=== PATIENT | male | born 1995 | race Hispanic/Latino ===

== ENCOUNTER 2016-05-21 12:47 | Emergency (ER) | payer SELFPAY ==
[2016-05-21 12:57] VITALS: BMI 26.4
[2016-05-21 13:01] VITALS: BP 150/86; PULSE 80; RESP 16; TEMP 98.2; O2SAT 100
[2016-05-21] MEDS ORDERED: Sodium Chloride 0.9% 1,000 ML IV STA (13:14)
[2016-05-21] MEDS ORDERED: Dextrose 5%/0.45% NS 1,000 ML IV STA (13:14)
[2016-05-21 13:37] LABS: HEMATOCRIT 50.3 % (42.0-52.0); MEAN CELL VOLUME 82.6 fL (80.0-105.0); MEAN CORPUSCULAR HEMOGLOBIN 29.2 pg (25.0-35.0); MEAN CORPUSCULAR HGB CONC 35.4 g/dl (31.0-37.0); MEAN PLATELET VOLUME 11.3 fl (7.0-11.0); PLATELET COUNT 225 [, 10^3/uL] (120.0-450.0); RED CELL DISTRIBUTION WIDTH 13.1 % (11.5-14.5); WHITE BLOOD COUNT 16.5 [, 10^3/ul] (4.5-11.0)
--- NOTE | 2016-05-21 13:40 | ED PDOC ---
Arrival/HPI - General Chief Complaint: GI Problem Time Seen by Provider: 05/21/16 13:08 Historian: Patient - History of Present Illness Narrative History of Present Illness (Text): 05/21/16 13:10 Corona Pate is a 20 year old male who presents to the ED for abdominal pain with nausea, vomiting, and diarrhea today. Patient reports last night he had a cold pizza with pepperoni around 12AM/1AM which he believes caused symptoms onset. Patient states symptoms are accompanied with chills and dizziness. Patient otherwise denies any urinary, back pain, new rashes, headache, vision changes or other associated symptoms. No sick contacts. PMD: None reported. Time/Duration: 24 hours Symptom Onset: Gradual Symptom Course: Unchanged Activities at Onset: Light, Eating Context: Home Past Medical History - Provider Review Nursing Documentation Reviewed: Yes - Past History Past History: No Previous - Infectious Disease Hx of Infectious Diseases: None - Tetanus Immunization Tetanus Immunization: Up to Date - Cardiac Hx Cardiac Disorders: No Hx Hypertension: No - Pulmonary Hx Tuberculosis: No - Neurological Hx Seizures: No - HEENT Hx HEENT Disorder: No - Renal Hx Renal Disorder: No - Endocrine/Metabolic Hx Endocrine Disorders: No - Hematological/Oncological Hx Cancer: No - Integumentary Hx Dermatological Disorder: No - Musculoskeletal/Rheumatological Hx Musculoskeletal Disorders: No - Gastrointestinal Hx Gastrointestinal Disorders: No - Genitourinary/Gynecological Hx Sexually Transmitted Diseases: No - Psychiatric Hx Anxiety: Yes Hx Depression: No Hx Substance Use: Yes (marijuana) - Past Surgical History Past Surgical History: No Previous - Anesthesia Hx Anesthesia: No - Suicidal Assessment Feels Threatened In Home Enviroment: No Family/Social History - Physician Review Nursing Documentation Reviewed: Yes Family/Social History: No Known Family HX Smoking Status: Current Some Days Smoker Hx Alcohol Use: Yes Frequency of alcohol use: Socially Hx Substance Use: Yes (marijuana) Substance used: Marijuana Hx Substance Use Treatment: No Allergies/Home Meds Allergies/Adverse Reactions: Allergies cefprozil [From Cefzil] Allergy (Verified 05/21/16 12:57) ANAPHYLAXIS Home Medications: Home Meds Medication Instructions Recorded Confirmed No Known Home Med 05/21/16 05/21/16 Review of Systems - Physician Review All systems were reviewed & negative as marked: Yes - Review of Systems Constitutional: Other (Chills). absent: Fevers Eyes: Normal ENT: Normal Respiratory: Normal. absent: SOB, Cough Cardiovascular: Normal. absent: Chest Pain Gastrointestinal: Abdominal Pain, Diarrhea, Nausea, Vomiting Genitourinary Male: Normal. absent: Dysuria, Frequency, Hematuria, Urinary Output Changes Musculoskeletal: Normal. absent: Back Pain, Neck Pain Skin: Normal Neurological: Normal. absent: Headache, Dizziness Endocrine: Normal Hemo/Lymphatic: Normal Psychiatric: Normal Physical Exam Vital Signs Reviewed: Yes Vital Signs Temp Pulse Resp BP Pulse Ox 05/21/16 13:00 98.2 F 80 16 150/86 100 Temperature: Afebrile Blood Pressure: Normal Pulse: Regular Respiratory Rate: Normal Appearance: Positive for: Well-Appearing, Non-Toxic, Uncomfortable ( Uncomfortable to Nausea) Pain Distress: None Mental Status: Positive for: Alert and Oriented X 3 - Systems Exam Head: Present: Atraumatic, Normocephalic Pupils: Present: PERRL Conjunctiva: Present: Normal Mouth: Present: Moist Mucous Membranes Pharnyx: Present: Normal. No: ERYTHEMA, EXUDATE Respiratory/Chest: Present: Clear to Auscultation, Good Air Exchange. No: Respiratory Distress, Accessory Muscle Use Cardiovascular: Present: Regular Rate and Rhythm, Normal S1, S2. No: Murmurs Abdomen: Present: Tenderness (mild epigastric ttp but soft), Normal Bowel Sounds. No: Distention, Peritoneal Signs Upper Extremity: Present: Normal Inspection. No: Cyanosis, Edema Lower Extremity: Present: Normal Inspection. No: Edema Neurological: Present: GCS=15, CN II-XII Intact, Speech Normal Skin: Present: Warm, Dry, Normal Color. No: Rashes Psychiatric: Present: Alert, Oriented x 3, Normal Insight, Normal Concentration Medical Decision Making ED Course and Treatment: 05/21/16 13:10 Impression: 20 year old male complaining of nausea, vomiting, diarrhea today. Differential Diagnosis include but are not limited to: Gastroenteritis vs. Viral Syndrome vs. Pancreatitis vs. Psychosomatic Disorder Plan: -- UA -- Labs -- Dextrose -- Pepcid -- IV Fluids -- Zofran -- Reassess and disposition Prior Visits: Notes and results from previous visits were reviewed. Patient was last seen in the ED on 05/17/15 for psych/suicidal related symptoms. Progress Notes: 05/21/16 15:50 Patient with leukocytosis but reporting full resolution of symptoms with complete resolution of abd pain and tenderness. He feels much better and is tolerating po - ok for d/c. - Lab Interpretations Lab Results: 05/21/16 13:20 05/21/16 13:20 Lab Results 05/21/16 15:00: Urine Color Yellow, Urine Appearance Clear, Urine pH 7.5, Ur Specific [place] 1.020, Urine Protein Negative, Urine Glucose (UA) Negative, Urine Ketones >=80, Urine Blood Negative, Urine Nitrate Negative, Urine Bilirubin Negative, Urine Urobilinogen 0.2, Ur Leukocyte Esterase Negative 05/21/16 13:20: WBC 16.5 H, RBC 6.09, Hgb 17.8, Hct 50.3, MCV 82.6, MCH 29.2, MCHC 35.4, RDW 13.1, Plt Count 225, MPV 11.3 H, Neutrophils % (Manual) 88 H, Band Neutrophils % 3 H, Lymphocytes % (Manual) 3 L, Atypical Lymphs % 1 H, Monocytes % (Manual) 4, Basophils % (Manual) 1, Platelet Evaluation Normal, PT 12.7 H, INR 1.18 H, APTT 24.7, Sodium 140, Potassium 4.2, Chloride 102, Carbon Dioxide 22, Anion Gap 20, BUN 21, Creatinine 0.9, Est GFR ( Amer) > 60, Est GFR (Non-Af Amer) > 60, Random Glucose 182 H, Calcium 10.0, Total Bilirubin 1.5 H, AST 30, ALT 23, Alkaline Phosphatase 72, Total Protein 8.4 H, Albumin 4.7 , Globulin 3.7, Albumin/Globulin Ratio 1.3, Amylase 77, Lipase 45 I have reviewed the lab results: Yes - Medication Orders Current Medication Orders: Discontinued Medications Famotidine (Pepcid) 20 mg IVP STAT STA Stop: 05/21/16 13:15 Last Admin: 05/21/16 13:29 Dose: 20 MG IVP Administration Document 05/21/16 13:29 SE (Rec: 05/21/16 13:29 SE [id number]) Charges for Administration # of IVP Administrations 1 Dextrose/Sodium Chloride (Dextrose 5%/0.45% Ns 1000 Ml) 1,000 mls @ 999 mls/hr IV .Q1H1M STA Stop: 05/21/16 14:14 Last Admin: 05/21/16 14:34 Dose: 999 MLS/HR eMAR Start Stop Document 05/21/16 14:34 SE (Rec: 05/21/16 14:34 SE [id number]) Intravenous Solution Start Date 05/21/16 Start Time 14:34 Sodium Chloride (Sodium Chloride 0.9%) 1,000 mls @ 999 mls/hr IV .Q1H1M STA Stop: 05/21/16 14:14 Last Admin: 05/21/16 13:26 Dose: 999 MLS/HR eMAR Start Stop Document 05/21/16 13:26 SE (Rec: 05/21/16 13:26 SE [id number]) Intravenous Solution Start Date 05/21/16 Start Time 13:26 Ondansetron HCl (Zofran Inj) 4 mg IVP STAT STA Stop: 05/21/16 13:15 Last Admin: 05/21/16 13:29 Dose: 4 MG IVP Administration Document 05/21/16 13:29 SE (Rec: 05/21/16 13:29 SE [id number]) Charges for Administration # of IVP Administrations 1 - Scribe Statement The provider has reviewed the documentation as recorded by the Samson Omer Provider Attestation: All medical record entries made by the Samson were at my direction and personally dictated by me. I have reviewed the chart and agree that the record accurately reflects my personal performance of the history, physical exam, medical decision making, and the department course for this patient. I have also personally directed, reviewed, and agree with the discharge instructions and disposition. Disposition/Present on Arrival - Present on Arrival Any Indicators Present on Arrival: No History of DVT/PE: No History of Uncontrolled Diabetes: No Urinary Catheter: No History of Decub. Ulcer: No History Surgical Site Infection Following: None - Disposition Have Diagnosis and Disposition been Completed?: Yes Diagnosis: Vomiting and diarrhea Disposition: HOME/ ROUTINE Disposition Time: 15:55 Patient Plan: Discharge Condition: GOOD Discharge Instructions (ExitCare): Gastroenteritis (ED), Acute Nausea and Vomiting (ED), Acute Diarrhea (ED) Additional Instructions: Drink plenty of fluids but advance diet very slowly as tolerated. Return to the emergency department if any new concerning symptoms. Referrals: [facility] at [facility] [Outside] - Follow up with primary
[2016-05-21 13:41] LABS: ADD MANUAL DIFF? YES
[2016-05-21 13:45] LABS: ALB/GLOB RATIO 1.3 (1.1-1.8); ALKALINE PHOSPHATASE 72 U/L (38-133); ALT/SGPT 23 U/L (7-56); AMYLASE 77 U/L (35-125); AST/SGOT 30 U/L (15-59); BILIRUBIN,TOTAL 1.5 mg/dL (0.2-1.3); BLOOD UREA NITROGEN 21 mg/dL (7-21); CARBON DIOXIDE 22 mmol/L (21-33); CHLORIDE 102 mmol/L (98-107); GFR AFRICAN-AMERICAN > 60; GLUCOSE,RANDOM 182 mg/dL (70-110); LIPASE 45 U/L (23-300); POTASSIUM 4.2 mmol/L (3.6-5.0); SODIUM 140 mmol/L (132-148); TOTAL PROTEIN 8.4 g/dL (5.8-8.3)
[2016-05-21 13:47] LABS: INR 1.18 (0.93-1.08); PARTIAL THROMBOPLASTIN TIME 24.7 Seconds (23.7-30.8)
[2016-05-21 14:54] LABS: ATYPICAL LYMPHOCYTE 1 % (0.0-0.0); BAND 3 % (0-2); BASOPHIL 1 % (0.0-1.0); NEUTROPHIL 88 % (50.0-70.0); PLATELET ESTIMATE NORMAL (NORMAL)
[2016-05-21 15:18] LABS: PH,URINE 7.5 (4.7-8.0); URINE BILIRUBIN NEGATIVE (NEGATIVE); URINE BLOOD NEGATIVE (NEGATIVE); URINE GLUCOSE (UA) NEGATIVE (NEGATIVE); URINE KETONE >=80 mg/dL (NEGATIVE); URINE LEUKOCYTE ESTERASE NEGATIVE Leu/uL (NEGATIVE); URINE PROTEIN NEGATIVE mg/dL (<30 mg/dL); URINE UROBILINOGEN 0.2 E.U./dL (<1 E.U./dL)
[2016-05-21 15:20] LABS: URINE APPEARANCE CLEAR (CLEAR); URINE COLOR YELLOW (YELLOW)
== END 2016-05-21 16:05 | disposition home or self-care (01) ==
LOC: ED 12:47
DX: R11.10 Vomiting, unspecified (principal); R19.7 Diarrhea, unspecified
CPT/HCPCS: 80053; 81003; 82150; 83690; 85025; 85610; 85730; 96374; 96375; 99284; J2405; J7040; J7042

== ENCOUNTER 2017-08-14 18:46 | Emergency (ER) | payer SELFPAY ==
[2017-08-14 18:53] VITALS: BMI 23.6
[2017-08-14 18:54] VITALS: RESP 18
--- NOTE | 2017-08-14 19:26 | ED PDOC ---
Arrival/HPI - General Chief Complaint: Male Genitourinary Time Seen by Provider: 08/14/17 18:59 Historian: Patient - History of Present Illness Narrative History of Present Illness (Text): 08/14/17 19:11 22yo male with no pmhx who present with complaint of penile rash and redness x 3weeks. States he saw his PMD last week and was given Clotrimazole for yeast infection. He notes that he started using the cream 5days ago. States the reason he came to ED today, is because the skin around the penile glans area started shading. Notes that he is uncircumcised. He states he is sexually active , but usually with protection. Reports burning pain on his urethra with urination. Denies abdominal pain, fever,chills, back pain, penile discharge, any other complaint. Past Medical History - Provider Review Nursing Documentation Reviewed: Yes - Past History Past History: No Previous - Infectious Disease Hx of Infectious Diseases: None - Tetanus Immunization Tetanus Immunization: Up to Date - Cardiac Hx Cardiac Disorders: No Hx Hypertension: No - Pulmonary Hx Tuberculosis: No - Neurological Hx Seizures: No - HEENT Hx HEENT Disorder: No - Renal Hx Renal Disorder: No - Endocrine/Metabolic Hx Endocrine Disorders: No - Hematological/Oncological Hx Cancer: No - Integumentary Hx Dermatological Disorder: No - Musculoskeletal/Rheumatological Hx Musculoskeletal Disorders: No - Gastrointestinal Hx Gastrointestinal Disorders: No - Genitourinary/Gynecological Hx Sexually Transmitted Diseases: No - Psychiatric Hx Anxiety: Yes Hx Depression: No Hx Substance Use: Yes (marijuana) - Past Surgical History Past Surgical History: No Previous - Anesthesia Hx Anesthesia: No - Suicidal Assessment Feels Threatened In Home Enviroment: No Family/Social History - Physician Review Nursing Documentation Reviewed: Yes Family/Social History: Unknown Family HX Smoking Status: Current Some Days Smoker Hx Alcohol Use: Yes Hx Substance Use: Yes (marijuana) Substance used: Marijuana Hx Substance Use Treatment: No Allergies/Home Meds Allergies/Adverse Reactions: Allergies cefprozil [From Cefzil] Allergy (Verified 05/21/16 12:57) ANAPHYLAXIS Home Medications: Home Meds Medication Instructions Recorded Confirmed No Known Home Med 05/21/16 08/14/17 Review of Systems - Physician Review All systems were reviewed & negative as marked: Yes - Review of Systems Constitutional: Normal Eyes: Normal ENT: Normal Respiratory: Normal Cardiovascular: Normal Gastrointestinal: Normal Genitourinary Male: Other (Penile rash/redness) Musculoskeletal: Normal Skin: Normal Neurological: Normal Endocrine: Normal Hemo/Lymphatic: Normal Psychiatric: Normal Physical Exam Vital Signs Reviewed: Yes Vital Signs Temp Pulse Resp BP Pulse Ox 08/14/17 18:54 97.8 F 101 H 18 145/76 98 Temperature: Afebrile Blood Pressure: Normal Pulse: Regular Respiratory Rate: Normal Appearance: Positive for: Well-Appearing, Non-Toxic, Comfortable Pain Distress: None Mental Status: Positive for: Alert and Oriented X 3 - Systems Exam Head: Present: Atraumatic, Normocephalic Pupils: Present: PERRL Extroacular Muscles: Present: EOMI Conjunctiva: Present: Normal Mouth: Present: Moist Mucous Membranes Neck: Present: Normal Range of Motion Respiratory/Chest: Present: Clear to Auscultation, Good Air Exchange. No: Respiratory Distress, Accessory Muscle Use Cardiovascular: Present: Regular Rate and Rhythm, Normal S1, S2. No: Murmurs Abdomen: No: Tenderness, Distention, Peritoneal Signs Genitourinary Male: Present: Other (sloughed/peeling skin noted on the penile glans). No: Circumcised Penis (uncircumcised penis) Back: Present: Normal Inspection Upper Extremity: Present: Normal Inspection. No: Cyanosis, Edema Lower Extremity: Present: Normal Inspection. No: Edema Neurological: Present: GCS=15, CN II-XII Intact, Speech Normal Skin: Present: Warm, Dry, Normal Color. No: Rashes Psychiatric: Present: Alert, Oriented x 3, Normal Insight, Normal Concentration Medical Decision Making ED Course and Treatment: 08/14/17 20:19 Pt presented with stated history. 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 Exam show peeling penile glans, which is likely secondary to yeast infection. He is already on clotrimazole. UA was negative Chlamydia/Gono ordered. PT notes he uses protection he will not be treated at this time. He was advised to f/u with in 3days for result and if positive have both himself and his sexual partner treated. He was advised to continue with the cream that was given by his PMD as was directed. - Lab Interpretations Lab Results: Lab Results 08/14/17 19:25: Urine Color Yellow, Urine Appearance Clear, Urine pH 6.0, Ur Specific [place] 1.025, Urine Protein Negative, Urine Glucose (UA) Negative, Urine Ketones Negative, Urine Blood Negative, Urine Nitrate Negative, Urine Bilirubin Negative, Urine Urobilinogen 0.2, Ur Leukocyte Esterase Negative Disposition/Present on Arrival - Present on Arrival Any Indicators Present on Arrival: No History of DVT/PE: No History of Uncontrolled Diabetes: No Urinary Catheter: No History of Decub. Ulcer: No History Surgical Site Infection Following: None - Disposition Have Diagnosis and Disposition been Completed?: Yes Diagnosis: Candidiasis of penis, Balanitis Disposition: HOME/ ROUTINE Disposition Time: 20:25 Patient Plan: Discharge Condition: STABLE Discharge Instructions (ExitCare): Yeast Infection (DC), Balanitis Additional Instructions: Continue with the cream and follow up with your Doctor Return to ED for any new symptoms Forms: [employer] (Telugu)
[2017-08-14 19:54] LABS: URINE BILIRUBIN NEGATIVE (NEGATIVE); URINE BLOOD NEGATIVE (NEGATIVE); URINE GLUCOSE (UA) NEGATIVE (NEGATIVE); URINE LEUKOCYTE ESTERASE NEGATIVE Leu/uL (NEGATIVE); URINE PROTEIN NEGATIVE mg/dL (<30 mg/dL); URINE UROBILINOGEN 0.2 E.U./dL (<1 E.U./dL)
[2017-08-14 19:55] LABS: URINE COLOR YELLOW (YELLOW)
[2017-08-14 19:56] LABS: URINE APPEARANCE CLEAR (CLEAR)
[2017-08-14 20:36] VITALS: BP 140/72; PULSE 90; TEMP 98; O2SAT 99
== END 2017-08-14 20:35 | disposition home or self-care (01) ==
LOC: ED 18:46
DX: N48.1 Balanitis (principal); B37.49 Other urogenital candidiasis